=== PATIENT | male | born 1980 | race African-American/Black ===

== ENCOUNTER 2017-07-20 11:41 | Day surgery (SDC) | payer OTHER ==
[~2017-07-20] VITALS: Ht 167.6 cm; Wt 62.1 kg
[2017-07-20 12:33] VITALS: Ht 167.6 cm; Wt 62.1 kg
[2017-07-20] MEDS ORDERED: RISPERDAL (12:41)
[2017-07-20] MEDS ORDERED: COZAAR (12:41)
[2017-07-20] MEDS ORDERED: OMEPRAZOLE (12:41)
[2017-07-20] MEDS ORDERED: SEROQUEL (12:41)
[2017-07-20] MEDS ORDERED: DILANTIN (12:41)
[2017-07-20] MEDS ORDERED: DEPAKOTE (12:41)
[2017-07-20] MEDS ORDERED: KEPPRA (12:41)
[2017-07-20 13:54] VITALS: BP 125/87; PULSE 59; RESP 18
--- NOTE | 2017-07-20 14:13 | OPPN ---
Date/Time of Note Date/Time of Note DATE: 07/20/17 TIME: 14:12 Operative Report Preoperative Diagnosis Abdominal pain Weight loss Postoperative Diagnosis Gastritis with erosions Hiatal hernia and reflux Operation/Procedure Performed Esophagogastroduodenoscopy and biopsy Surgeon see signature line customer assistant None Anesthesia: MAC Estimated blood loss: none Transfusion Required none Specimen Gastric mucosal biopsy Grafts/Implants none Complications none ZHENG GUILLEN MD Jul 20, 2017 14:13
--- NOTE | 2017-07-20 14:13 | OPPN ---
Date/Time of Note Date/Time of Note DATE: 07/20/17 TIME: 14:12 Operative Report Preoperative Diagnosis Abdominal pain Weight loss Postoperative Diagnosis Gastritis with erosions Hiatal hernia and reflux Operation/Procedure Performed Esophagogastroduodenoscopy and biopsy Surgeon see signature line assistant professor of nursing None Anesthesia: MAC Estimated blood loss: none Transfusion Required none Specimen Gastric mucosal biopsy Grafts/Implants none Complications none ZHENG GUILLEN MD Jul 20, 2017 14:13
--- NOTE | 2017-07-20 14:13 | OPPN ---
Date/Time of Note Date/Time of Note DATE: 07/20/17 TIME: 14:12 Operative Report Preoperative Diagnosis Abdominal pain Weight loss Postoperative Diagnosis Gastritis with erosions Hiatal hernia and reflux Operation/Procedure Performed Esophagogastroduodenoscopy and biopsy Surgeon see signature line family medicine physician assistant None Anesthesia: MAC Estimated blood loss: none Transfusion Required none Specimen Gastric mucosal biopsy Grafts/Implants none Complications none ZHENG GUILLEN MD Jul 20, 2017 14:13
[2017-07-20 14:40] VITALS: BP 123/78; RESP 14
--- NOTE | 2017-07-21 04:38 | GILP ---
DATE OF PROCEDURE: NAME OF PROCEDURES: Esophagogastroduodenoscopy and biopsy. SURGEON: Zheng Wang MD PREOPERATIVE DIAGNOSES: 1. Abdominal pain. 2. Weight loss. POSTOPERATIVE DIAGNOSES 1. Gastritis with erosions. 2. Gastric mucosal biopsies were taken for H. pylori test. 3. Hiatal hernia and gastroesophageal reflux disease. INDICATION FOR THE PROCEDURE: Mr. Kvng Keating is a 37-year-old male patient who had upper abdomina l pain with weight loss. The patient was scheduled for endoscopic examination for further evaluatio n. The procedure and possible complications were well explained to the patient's caregiver and consent was obtained. DESCRIPTION OF PROCEDURE: Under the influence of anesthesia, the gastroscope was carefully introduc ed into the esophagus and under direct vision, it was advanced to the stomach and through the pyloru s into the duodenal bulb and descending duodenum. FINDINGS: ESOPHAGUS: The patient had hiatal hernia and gastroesophageal reflux disease. STOMACH: He had gastritis with erosions. Gastric mucosal biopsies were taken for H. pylori test. DUODENUM: Normal. He tolerated the procedure very well and there was no complication from the procedures. At the end of the procedure, he was awake with stable vital signs and he was discharged home to the care of his family. IMPRESSION: Please see postoperative diagnoses. PLAN: 1. Continue omeprazole. 2. Add Bentyl 10 mg p.o. t.i.d. p.r.n. for pain. 3. Await H. pylori test report. Dictated By: ZHENG CASTRO/LINDA Conf#: [id number] DID#: [id number]
--- NOTE | 2017-07-22 10:46 | CONS ---
DATE OF ADMISSION: DATE OF CONSULTATION: HISTORY OF PRESENT ILLNESS: I thank you very much for this kind referral. The patient is a 36-year-old male patient, who has been referred to me for further evaluation of upper abdominal pain, not responding to therapy with omeprazole. The patient had abdominal ultrasound done and it was negative. The patient has been losing weight. No past history of peptic ulcer disease. He is not taking any nonsteroidal anti-inflammatory agents. No history of gallstones or liver disease. No change in the bowel habits or rectal bleeding. He is hypertensive, not a diabetic. No heart disease or lung problem. No kidney disease. The patient has had mental retardation as well as seizure disorder. SOCIAL HISTORY: Nonsmoker. No alcohol abuse. FAMILY HISTORY: No family history available. ALLERGIES: NO DRUG ALLERGIES. MEDICATIONS: Omeprazole, Dilantin, Depakote, Keppra, Cozaar, Seroquel, Risperdal. PHYSICAL EXAMINATION: GENERAL: He is 5 feet, 6 inches tall and he weighs 135 pounds. HEART: Normal heart sounds. LUNGS: Clear. ABDOMEN: Soft. No masses. Normal bowel sounds. NEUROLOGICAL: Normal except for mental retardation. IMPRESSION: 1. Upper abdominal pain not responding to therapy with omeprazole. 2. The patient had abdominal ultrasound, and it is negative. 3. Weight loss. 4. Hypertension. 5. Mental retardation. 6. Seizure disorder. PLAN: Endoscopy examination for further evaluation. The procedure and possible complications were well explained to the car sweeper. Because of the mental retardation, the patient will need monitored anesthesia care I thank you once again. With warmest personal regards. Patient Name: GRANT CRONIN Dictated By: MD GLORIA Garcia/ilene/ama /Document#: [id number]
--- NOTE | 2017-07-22 10:46 | CONS ---
DATE OF ADMISSION: DATE OF CONSULTATION: HISTORY OF PRESENT ILLNESS: I thank you very much for this kind referral. The patient is a 36-year-old male patient, who has been referred to me for further evaluation of upper abdominal pain, not responding to therapy with omeprazole. The patient had abdominal ultrasound done and it was negative. The patient has been losing weight. No past history of peptic ulcer disease. He is not taking any nonsteroidal anti-inflammatory agents. No history of gallstones or liver disease. No change in the bowel habits or rectal bleeding. He is hypertensive, not a diabetic. No heart disease or lung problem. No kidney disease. The patient has had mental retardation as well as seizure disorder. SOCIAL HISTORY: Nonsmoker. No alcohol abuse. FAMILY HISTORY: No family history available. ALLERGIES: NO DRUG ALLERGIES. MEDICATIONS: Omeprazole, Dilantin, Depakote, Keppra, Cozaar, Seroquel, Risperdal. PHYSICAL EXAMINATION: GENERAL: He is 5 feet, 6 inches tall and he weighs 135 pounds. HEART: Normal heart sounds. LUNGS: Clear. ABDOMEN: Soft. No masses. Normal bowel sounds. NEUROLOGICAL: Normal except for mental retardation. IMPRESSION: 1. Upper abdominal pain not responding to therapy with omeprazole. 2. The patient had abdominal ultrasound, and it is negative. 3. Weight loss. 4. Hypertension. 5. Mental retardation. 6. Seizure disorder. PLAN: Endoscopy examination for further evaluation. The procedure and possible complications were well explained to the sandfill operator surface. Because of the mental retardation, the patient will need monitored anesthesia care I thank you once again. With warmest personal regards. Patient Name: GRANT CRONIN Dictated By: MD GLORIA Garcia/ilene/ama /Document#: [id number]
--- NOTE | 2017-07-22 10:46 | CONS ---
DATE OF ADMISSION: DATE OF CONSULTATION: HISTORY OF PRESENT ILLNESS: I thank you very much for this kind referral. The patient is a 36-year-old male patient, who has been referred to me for further evaluation of upper abdominal pain, not responding to therapy with omeprazole. The patient had abdominal ultrasound done and it was negative. The patient has been losing weight. No past history of peptic ulcer disease. He is not taking any nonsteroidal anti-inflammatory agents. No history of gallstones or liver disease. No change in the bowel habits or rectal bleeding. He is hypertensive, not a diabetic. No heart disease or lung problem. No kidney disease. The patient has had mental retardation as well as seizure disorder. SOCIAL HISTORY: Nonsmoker. No alcohol abuse. FAMILY HISTORY: No family history available. ALLERGIES: NO DRUG ALLERGIES. MEDICATIONS: Omeprazole, Dilantin, Depakote, Keppra, Cozaar, Seroquel, Risperdal. PHYSICAL EXAMINATION: GENERAL: He is 5 feet, 6 inches tall and he weighs 135 pounds. HEART: Normal heart sounds. LUNGS: Clear. ABDOMEN: Soft. No masses. Normal bowel sounds. NEUROLOGICAL: Normal except for mental retardation. IMPRESSION: 1. Upper abdominal pain not responding to therapy with omeprazole. 2. The patient had abdominal ultrasound, and it is negative. 3. Weight loss. 4. Hypertension. 5. Mental retardation. 6. Seizure disorder. PLAN: Endoscopy examination for further evaluation. The procedure and possible complications were well explained to the job training supervisor. Because of the mental retardation, the patient will need monitored anesthesia care I thank you once again. With warmest personal regards. Patient Name: GRANT CRONIN Dictated By: MD GLORIA Garcia/ilene/ama /Document#: [id number]
== END 2017-07-20 16:22 | disposition home or self-care (01) ==
LOC: GIL 11:41
PROVIDERS: ATTEND Internal Medicine Gastroenterology
DX: K29.70 Gastritis, unspecified, without bleeding (principal); K44.9 Diaphragmatic hernia without obstruction or gangrene; K21.9 Gastro-esophageal reflux disease without esophagitis; R63.4 Abnormal weight loss; Z68.22 Body mass index [BMI] 22.0-22.9, adult; I10 Essential (primary) hypertension; G40.909 Epilepsy, unspecified, not intractable, without status epilepticus; F79 Unspecified intellectual disabilities
CPT/HCPCS: 43239; 87081; Z7610